=== PATIENT | male | born 1990 | race Caucasian/White ===

== ENCOUNTER 2019-10-24 17:56 | Emergency (ER) | payer SELFPAY ==
[~2019-10-24] VITALS: Ht 188 cm; Wt 77.1 kg
[2019-10-24 17:56] VITALS: BP 130/84
[2019-10-24 18:49] VITALS: BP 130/84
== END 2019-10-24 18:57 | disposition home or self-care (01) ==
LOC: MED 17:56
DX: R06.02 Shortness of breath (principal); R42 Dizziness and giddiness
CPT/HCPCS: 71045; 99283; Q0092

== ENCOUNTER 2019-10-27 17:00 | Emergency (ER) | payer SELFPAY ==
[~2019-10-27] VITALS: Ht 185.4 cm; Wt 73.9 kg
[2019-10-27 17:05] VITALS: BP 123/77
[2019-10-27 18:22] VITALS: BP 118/68
== END 2019-10-27 18:23 | disposition home or self-care (01) ==
LOC: MED 17:00 → EEVIPCON 17:00 → MED 18:23
DX: Z03.818 Encounter for observation for suspected exposure to other biological agents ruled out (principal); R06.02 Shortness of breath; R05 Cough; F12.90 Cannabis use, unspecified, uncomplicated
CPT/HCPCS: 36415; 71045; 87635; 87804; 99284; Q0092